=== PATIENT | female | born 1955 | race Caucasian/White ===

== ENCOUNTER 2023-10-13 09:16 | Emergency (ER) | payer BC, MEDICARE ==
[2023-10-13 09:38] VITALS: O2SAT 99
--- NOTE | 2023-10-13 11:19 | XRAY Report ---
PROCEDURE: Ankle 3+V RT INDICATIONS: Trauma TECHNIQUE: 3 views of the ankle were acquired. COMPARISON: None. FINDINGS: Bones: There is cortical lucency at the distal fibula tip consistent with avulsion fracture. Ankle m ortise is normally aligned. No suspicious bony lesions. Soft tissues: No tibiotalar joint effusion. Achilles tendon appears normal. IMPRESSION: Distal fibular tip avulsion fracture. Reviewed by: Vivien Crowley MD, PhD on 10/13/2023 10:18 AM LAUR[facility] Approved by: Vivien Crowley MD, PhD on 10/13/2023 10:18 AM LAURA Station ID: [id number]
--- NOTE | 2023-10-13 11:31 | ED Physician Documentation ---
PD HPI LOWER EXT INJURY - Stated complaint Stated Complaint: RT ANKLE PX - Chief complaint Chief Complaint: Trauma Ext - History obtained from History obtained from: Patient, Family - Additional information Additional information: The patient comes to the emergency department chief complaint of right ankle pain after a rolling injury yesterday. She states she was dancing in her kitchen when her foot slipped on the hard surface floor and she made contact with a [place] of the cabinet, forcing her ankle to roll. She states that she was able to bear weight initially but it hurt but now, after laying down all night, it hurts too much to put weight on it. The patient denies any other injuries or complaints. PD PAST MEDICAL HISTORY - Past Medical History Past Medical History: Yes Cardiovascular: Hypertension - Past Surgical History Past Surgical History: Yes /TEST LEAD: Other - Present Medications Home Medications: Ambulatory Orders Medication Instructions Recorded Confirmed Lisinopril [Zestril] 30 mg PO DAILY 10/13/23 10/13/23 traMADol [Ultram] 50 mg PO Q4-6H PRN #15 tablet 10/13/23 - Allergies Allergies/Adverse Reactions: Allergies Allergy/AdvReac Type Severity Reaction Status Date / Time Sulfa (Sulfonamide Allergy Unknown Verified 10/13/23 09:36 Antibiotics) - Social History Does the pt smoke?: No Smoking Status: Never smoker Does the pt drink ETOH?: Yes Does the pt have substance abuse?: No - Immunizations Immunizations are current?: Yes PD ED PE NORMAL - Vitals Vital signs reviewed: Yes - General General: No acute distress, Well developed/nourished, Other (Alert, grossly oriented.) - HEENT HEENT: Atraumatic, EOMI, Moist mucous membranes - Neck Neck: Supple, no meningeal sign - Cardiac Cardiac: Strong equal pulses - Respiratory Respiratory: No respiratory distress - Derm Derm: Normal color, Warm and dry, No rash - Extremities Extremities: No deformity, Other (Mild edema over lateral malleolus with mild tenderness. No deformity. No instability. Range of motion mildly limited secondary to pain.) - Neuro Neuro: Alert and oriented X 3, No motor deficit, No sensory deficit - Psych Psych: Normal mood, Normal affect Results - Vitals Vitals: Vital Signs - 24 hr 10/13/23 09:34 Temperature 36.5 C Heart Rate 87 Respiratory 16 Rate Blood Pressure 134/60 H O2 Saturation 99 - Rads (name of study) Right ankle x-ray series Relevant Findings:: Final report received, See rad report (Negative except for distal fibular tip avulsion fracture.) Procedures - Splint (location) - Minor ankle R Splint applied by: Nurse Type of splint: Ankle airsplint Other: Patient tolerated well, No complications, Neurovascular intact, Good alignment, Crutches provided PD Medical Decision Making - ED course Complexity details: reviewed results, re-evaluated patient, considered rosalina merida, d/w patient, d/w family ED course: The patient was sent for right ankle x-ray series and did appear to have a very thin, mild avulsion of the very tip of Her distal fibula involving just the cortex. This is patient functionally had a sprain, I did place her in an air splint and gave her a pair of crutches. We have discussed follow-up, symptomatic management at home, and the usual indications for return. Departure - Departure Disposition: Home, Self Care Clinical Impression: Avulsion fracture of distal end of fibula Condition: Stable Instructions: ED Sprain Ankle W X Ray Prescriptions: traMADol [Ultram] 50 mg PO Q4-6H PRN #15 tablet PRN Reason: Pain 5-7 Comments: Your x-ray overall looked very good. It does appear that the tension on your ligament pulled the coating of the tip of the bone loose and this is technically a very tiny fracture. However, because it does not disrupt the integrity of the bone and because functionally it is a sprain, it is treated as a sprain. Therefore, you have been placed in an air splint and given a pair of crutches. You should keep weight off of the ankle until you can walk without pain. You may wear the ankle brace as long as it feels helpful to do so. You may get begin bearing weight with just walking but should avoid any more strenuous movements until you can walk in an unlimited fashion without pain. You may take ibuprofen 600 mg every 6 hours and Tylenol 650 mg every 4 hours as needed for pain. A prescription for pain medication that is a little stronger has been electronically transmitted to the [facility] in [place].
[2023-10-13 12:21] VITALS: BP 140/72
== END 2023-10-13 12:16 | disposition home or self-care (01) ==
LOC: ED 09:16
DX: S82.831A Other fracture of upper and lower end of right fibula, initial encounter for closed fracture (principal); S93.401A Sprain of unspecified ligament of right ankle, initial encounter; X50.1XXA Overexertion from prolonged static or awkward postures, initial encounter; Y93.41 Activity, dancing; Y92.000 Kitchen of unspecified non-institutional (private) residence as the place of occurrence of the external cause
CPT/HCPCS: 99283; 99284